=== PATIENT | male | born 1970 | race Caucasian/White ===

== ENCOUNTER → 2018-08-28 07:53 | Outpatient (CLI) | payer OTHER, SELFPAY ==
[2018-08-26 16:26] VITALS: BMI 28.3
[2018-08-28 09:31] LABS: ALB/GLOB Ratio 1.2 RATIO (0.9-2.4); AST(SGOT) 28 U/L (15-37); Alanine Aminotransfer ALT/SGPT 25 U/L (16-61); Albumin, Serum 4.1 g/dL (3.2-5.0); Alkaline Phosphatase 64 U/L (45-117); Anion Gap 7 (5-15); BUN 17 mg/dL (7-18); BUN/Creat Ratio 14.7 RATIO (10-20); Calcium,Total 8.5 mg/dL (8.5-10.1); Chloride 108 mmol/L (98-107); Cholesterol 168 mg/dL (200); Creatinine, Serum 1.16 mg/dL (0.70-1.30); EST Glomerular Filtration Rate 71 mL/min (>60); Est Glom Filt Rate - Afr Amer 86 mL/min (>60); Globulin 3.5 g/dL (2.2-4.2); Glucose 89 mg/dL (74-106); High Density Lipoprotein 53 mg/dL; Potassium 4.2 mmol/L (3.5-5.1); Protein, Total 7.6 g/dL (6.4-8.2); Sodium Level 140 mmol/L (136-145); Triglycerides 55 mg/dL; Very Low Density Lipoprotein 11 mg/dL (5-40)
== END ==
PROVIDERS: Family Provider Family Medicine; PCP Family Medicine; Referring Provider Family Medicine; Visit Provider Family Medicine
DX: N52.9 Male erectile dysfunction, unspecified (principal)
CPT/HCPCS: 36415; 80053; 80061; 84403

== ENCOUNTER 2019-05-27 07:55 | Day surgery (SDC) | payer OTHER, SELFPAY ==
[2018-08-26 16:26] VITALS: BMI 28.3
[2019-05-27] MEDS: Lactated Ringers 1,000 ML 100 ML IV (08:36)
[2019-05-27 08:38] VITALS: BP 111/71; PULSE 57; RESP 16; TEMP 36.9; O2SAT 97; BMI 26.8
--- NOTE | 2019-05-27 08:48 | H&P.OPEN ---
History of Present Illness Date of Admission: 05/27/19 The patient is a 48 year old M presents for screening colonoscopy. He reports his last colonoscopy was 10 years ago for bleeding. He is having no abdominal pain or bleeding at this time. He has no family history of colon cancer. Past Medical/Surgical History - Planned Operation Planned Operative Procedure/s: colonoscopy Date of Operative Procedure: 05/27/19 Permit Signed: No S.O.S: No Is This Patient Having a Total Joint: No - Previous Hospitalizations/Surgeries HX Hospitalizations: No HX of Surgeries: 2013 right shoulder arthroscopy. 2018 left hand surgery x2, trigger finger Any Problems With Anesthesia: No You/Your Family Experience Fever (Hyperthermia) With Anes: No Cholinesterase deficiency: No - Cardiovascular Hx Chest Pain within Last 2 months: No Hx of Irregular Heartbeat and/or Afib: No Hx Heart Attack: No Hx Congestive Heart Failure: No Hx Rheumatic Fever: No Hx Hypertension: No Hx Internal Defibrillator: No Hx Pacemaker: No Hx Cardiac Catheterization: No Hx Cardiac Surgery/Stents/Etc.: No Hx Stress Test: No HX Edema: No Hx Pain in Legs when Walking/Leg Cramps: No - Respiratory Chronic Cough: No HX of Shortness of Breath: No - denies Hoarseness: No Hx Chronic Obstructive Pulmonary Disease (COPD): No Hx Asthma: No Hx Emphysema: No Hx Sleep Apnea: No Hx Oxygen Use at Home: No Hx Respiratory Tract Infection/Cold (presently): No Do You Snore Loudly (louder than talking or can be heard): Yes Do You Often Feel Tired/ Fatigued/ Sleepy Dring Daytime?: Yes Has Anyone Observed You Stop Breathing During Sleep?: No Result (for STOP score): Positive Hx Smoking: No Smoking Status: Never smoker - Gastrointestinal Hx Gastroesophageal Reflux: Yes - per hx, not recent Controlled With Meds: No Hx Gastrointestinal Disorders: No Hx Gastrointestinal Bleed: No Hx Ulcer: No Hx Hiatal Hernia: No Difficulty Chewing/Swallowing: No Recent Onset of Swallowing Problems: No Special diet followed at home: No Hx Unplanned Weight Loss of 20#: No HX Unplanned Weight Gain of 20#: No - Neurological Hx Seizures: No HX Syncope/Blackout Spells/Unconsciousness: No Hx CVA/Stroke: No Hx Transient Ischemic Attacks (TIA): No Hx Multiple Sclerosis: No Hx Parkinson's Disease: No Hx Head/Neck Injury: No Hx Headaches: Yes - occas Hx Back Injury/Pain: No Recent Onset of Speech Difficulty: No Restless Legs: No Does patient have nerve stimulator: No Patient instructed to have device shut off: No Rep notified?: No - Blood Disorder Hx Leukemia: No Bleeding Tendencies: No Hx Deep Vein Thrombosis: No Hx High Cholesterol: No Blood Transmitted Disease: No Hx Hepatitis: No Hx Cirrhosis: No Hx Anemia: No Hx Blood Disorders: No - Genitourinary Hx Renal Disease: No - Musculoskeletal Hx Arthritis: No Hx Rheumatoid Arthritis: No Hx Gout: No Recent Onset of an Orthopedic Problem: No - Endocrine Hx Diabetes: No Thyroid Disease: No Hx Steroid Therapy: Yes - oral 02/2019 - Psycho/Social Hx Substance Use: No Hx Alcohol Use: No Hx Anxiety: No Hx Depression: No Mental Illness: No Hx Dementia: No - Miscellaneous Hx Cancer: No Recent Exposure to Contagious Disease: No Active MRSA: No Hx of C-Diff: No Any Loose Teeth: No Allergies No Known Allergies Allergy (Unverified 05/25/19 15:15) - Discharge Is Pt Admitted From a [facility], or a Senior Care: No Who Could Help: After D/C, Where Do you Plan to Go: Return Home - Physical Exam Vitals/I&O's: Vital Signs Temp Pulse Resp BP Pulse Ox 98.4 F 57 L 16 111/71 97 05/27/19 08:38 05/27/19 08:38 05/27/19 08:38 05/27/19 08:38 05/27/19 08:38 Oxygen Delivery Method Room Air Weight: 171 lb 1.259 oz Body Mass Index (BMI) 26.8 General: Alert, Oriented x3 Lungs: Normal air movement Cardiovascular: Regular rate, Regular Rhythm Abdomen: Soft, Non Tender, Non-Distended Current Medications Lactated Ringer's () 1,000 mls @ 100 mls/hr IV .Q10H GREGG Last Admin: 05/27/19 08:36 Dose: 100 mls/hr Documented by: Assessment/Plan 48-year-old male screening colon cancer I explained endoscopy in detail to the patient. I explained the risks including but not limited to stroke or heart attack with anesthesia, perforation of the GI tract, bleeding, infection. I explained that any of these could necessitate further emergency surgery. The patient understands and all questions were answered sufficiently. The patient wishes to proceed with procedure. Arnoldo Mark MD Pager: [facility] [address] [place] [address] [address] [place] [address] Office: Surgery Risks - Colonoscopy Risks Include but are not Limited To: Risks include but are not limited to: Bleeding, perforation requiring further surgery, inability to complete colonoscopy requiring barium enema.
--- NOTE | 2019-05-27 09:18 | OP.COLON_ITS ---
Patient Name: Manpreet Meier Procedure Date: 05/27/2019 8:54 AM Date of : 1970 Age: 48 Procedure: Colonoscopy Indications: Screening for colorectal malignant neoplasm Providers: Arnoldo Mark MD Referring MD: Woody Glaser Medicines: Monitored Anesthesia Care Patient Profile: This is a 48 year old male. Refer to note in patient chart for documentation of history and physical. Last Colonoscopy: 10 years ago. Complications: No immediate complications. Procedure: Pre-Anesthesia Assessment: - Prior to the procedure, a History and Physical was performed, and patient medications and allergies were reviewed. The patient's tolerance of previous anesthesia was also reviewed. The risks and benefits of the procedure and the sedation options and risks were discussed with the patient. All questions were answered, and informed consent was obtained. Prior Anticoagulants: The patient has taken no previous anticoagulant or antiplatelet agents. After reviewing the risks and benefits, the patient was deemed in satisfactory condition to undergo the procedure. After I obtained informed consent, the scope was passed under direct vision. Throughout the procedure, the patient's blood pressure, pulse, and oxygen saturations were monitored continuously. The pediatric colonoscope was introduced through the anus and advanced to the cecum, identified by appendiceal orifice and ileocecal valve. The colonoscopy was performed without difficulty. The patient tolerated the procedure well. The quality of the bowel preparation was good. Scope In: 9:00:54 AM Scope Withdrawal Time 0 hours 6 minutes 13 seconds Scope Out: 9:14:00 AM Total Procedure Duration Time 0 hours 13 minutes 6 seconds Findings: The entire examined colon appeared normal on direct and retroflexion views. Impression: - The entire examined colon is normal on direct and retroflexion views. - No specimens collected. Recommendation: - Resume previous diet. - Continue present medications. - Repeat colonoscopy in 10 years for screening purposes. Procedure Code(s): --- Professional --- 75305, Colonoscopy, flexible; diagnostic, including collection of specimen(s) by brushing or washing, when performed (separate procedure) Diagnosis Code(s): --- Professional --- Z12.11, Encounter for screening for malignant neoplasm of colon CPT copyright 2017 [employer]. All rights reserved. The codes documented in this report are preliminary and upon internet marketing analyst review may be revised to meet current compliance requirements. Arnoldo Mark MD 05/27/2019 9:17:51 AM This report has been signed electronically. Number of Addenda: 0 Note Initiated On: 05/27/2019 8:54 AM
[2019-05-27 09:20] VITALS: BP 100/55; BP 111/55; PULSE 88; RESP 16; TEMP 36.2; O2SAT 99
[2019-05-27 09:25] VITALS: BP 108/74; BP 111/55; PULSE 52; RESP 16; O2SAT 100
[2019-05-27 09:30] VITALS: BP 109/75; BP 111/55; PULSE 50; RESP 16; O2SAT 100
[2019-05-27 09:32] VITALS: BP 107/74; BP 111/55; PULSE 16; RESP 16; TEMP 36.3; O2SAT 100
[2019-05-27 10:03] VITALS: BP 111/55
== END 2019-05-27 10:03 | disposition home or self-care (01) ==
LOC: EN 07:56 → AC 07:57
PROVIDERS: Family Provider Family Medicine; PCP Family Medicine; Referring Provider Family Medicine; Visit Provider Surgery
PROC: 0DJD8ZZ Inspection of Lower Intestinal Tract, Via Natural or Artificial Opening Endoscopic (ICD-10-PCS; CPT 45378; principal; 2019-05-27 08:55)
DX: Z12.11 Encounter for screening for malignant neoplasm of colon (principal)
CPT/HCPCS: 45378; J7120

== ENCOUNTER → 2020-05-19 07:39 | Outpatient (CLI) | payer OTHER, SELFPAY ==
[2019-12-21 13:06] VITALS: BMI 26.8
--- NOTE | 2020-05-19 07:41 | RAD_ITS ---
STUDY: X-RAY - LUMBAR SPINE REASON FOR EXAM: Male, 49 years old. chronic back pain, no injury TECHNIQUE: 3 view(s) of the lumbar spine were obtained. COMPARISON: None FINDINGS: Normal lumbar lordosis. There is a dextroscoliosis of the lumbar spine. There is a normal alignment of the vertebrae. There is multilevel endplate spondylosis of the lumbar vertebrae. There is multi-level degenerative disc disease with multi-level disc space narrowing. There is no demonstrated fracture. Moderate facet arthropathy in the lower lumbar levels. The soft tissue structures are unremarkable. RAD/Lumbar Spine 2 or 3 Views IMPRESSION: Degenerative disc disease and facet arthropathy. Electronically Signed: Alejandro Costa MD (Brooks) at 17:02 EDT , Service support ,
--- NOTE | 2020-05-19 07:41 | RAD_ITS ---
STUDY: X-RAY - THORACIC SPINE REASON FOR EXAM: Male, 49 years old. chronic back pain, no injury TECHNIQUE: 3 view(s) of the thoracic spine were obtained. COMPARISON: None. FINDINGS: Normal kyphosis of the thoracic spine. There is no substantial scoliosis. There is demineralization of the thoracic spine with endplate spondylosis. There is multilevel disc space narrowing of the thoracic spine. No compression fracture. The soft tissue structures are unremarkable. RAD/Thoracic Spine 3 Views IMPRESSION: Multilevel degenerative changes without compression fracture demonstrated. Electronically Signed: Alejandro Costa MD ([place]) at 17:36 EDT , Service support ,
[2020-05-19 09:15] LABS: PSA,Total- Diagnostic 1.73 ng/mL (0.0-4.0)
== END ==
PROVIDERS: PCP Family Medicine; Referring Provider Family Medicine; Visit Provider Family Medicine
DX: M54.9 Dorsalgia, unspecified (principal)
CPT/HCPCS: 36415; 72072; 72100; 84153

== ENCOUNTER → 2020-06-21 16:53 | Outpatient (CLI) | payer OTHER, SELFPAY ==
[2019-12-21 13:06] VITALS: BMI 26.8
--- NOTE | 2020-06-21 16:54 | MRI_ITS ---
STUDY: MRI THORACIC SPINE WITHOUT CONTRAST REASON FOR EXAM: Male, 49 years old. Back pain, worse x 6-8 mos TECHNIQUE: Standardized fat and water weighted pulse sequences were obtained in the sagittal and axial planes. COMPARISON: Thoracic spine radiographs 05/19/2020. FINDINGS: Normal kyphosis of the thoracic spine. There is no substantial scoliosis. T1-2, T2-3, T3-4, T4-5, T5-6, T6-7, T7-8, T8-9, T9-10, T10-11, T11-12: Minimal anterior wedging of T6, T7, T8, T10, T11, T12 and L1 vertebral bodies are presumably from remote injury. Moderate disc space height narrowing at T7-T8, T8-T9, T9-T10, T10-T11, T11-T12 and T12-L1 disc space levels. No extruded disc fragment. Normal central canal and intervertebral neural foramina. Small round benign vertebral body hemangiomas at T7, T8 and T10 vertebral bodies. Normal visualized thoracic cord. Normal conus medullaris that terminates at the T12-L1 disc level.. The soft tissue structures are unremarkable. MRI/Spine Thoracic (Routine) IMPRESSION: 1. No MRI evidence of thoracic extruded disc fragment or spinal stenosis. 2. Normal thoracic spinal cord. 3. Minimal anterior wedging of T6, T7, T8, T10, T11, T12 and L1 vertebral bodies are presumably from remote injury. 4. No MRI evidence of recent compression fractures of the thoracic spine. Electronically Signed: Jesus Lindsay MD at 16:20 EST , Service support ,
== END ==
PROVIDERS: PCP Family Medicine; Referring Provider Orthopaedic Surgery; Visit Provider Orthopaedic Surgery
DX: M54.6 Pain in thoracic spine (principal); M54.10 Radiculopathy, site unspecified
CPT/HCPCS: 72146

== ENCOUNTER → 2023-05-30 | Outpatient (CLI) | payer OTHER, SELFPAY ==
--- NOTE | 2023-05-30 08:07 | RAD_ITS ---
STUDY: X-RAY - PARANASAL SINUSES REASON FOR EXAM: Male, 52 years old. nasal congestion TECHNIQUE: 3 view(s) of the paranasal sinuses were obtained. COMPARISON: None. FINDINGS: Normal visualized frontal, maxillary, ethmoidal and sphenoid sinuses. Normal visualized facial bones. The soft tissue structures are unremarkable. RAD/Sinuses min 3 Views IMPRESSION: Normal x-rays of the paranasal sinuses. Electronically Signed: Sotero Arnold MD at 9:13 EST ,
== END | disposition home or self-care (01) ==
LOC: RAD 08:04
PROVIDERS: PCP Family Medicine; Visit Provider Family Medicine
DX: R09.81 Nasal congestion (principal)
CPT/HCPCS: 70220

== ENCOUNTER → 2025-01-21 | Outpatient (CLI) | payer OTHER, SELFPAY ==
[2025-01-21 09:42] LABS: Hematocrit 40.7 % (40-54); Hemoglobin 14.1 g/dL (13.0-16.5); Immature Granulocytes Count 0.010 X10^3/uL (0.0-0.0); Mean Corp Hgb Conc 34.6 g/dL (32-36); Mean Corpuscular Volume 86.6 fL (80-94); Mean Platelet Vol. 9.4 fl (6.2-12.0); NRBC Flagged by Analyzer 0 % (0-5); Platelet Count 251 K/mm3 (150-450); RBC Distribution Width CV 13.0 % (11.6-14.6); RBC Distribution Width SD 40.9 fl (35.1-43.9); Red Blood Count 4.70 M/mm3 (4.6-6.2); White Blood Count 4.5 K/mm3 (4.4-11.0)
[2025-01-21 10:54] LABS: AST(SGOT) 36 U/L (<=37); Alanine Aminotransfer ALT/SGPT 23 U/L (<=46); Albumin, Serum 4.4 g/dL (3.5-5.0); Alkaline Phosphatase 64 U/L (40-129); Anion Gap 12 (5-15); BUN 21 mg/dL (4-19); BUN/Creat Ratio 19.6 RATIO (10-20); Calcium,Total 9.4 mg/dL (7.6-11.0); Carbon Dioxide 24.2 mmol/L (21.0-32.0); Chloride 104 mmol/L (98-108); Globulin 2.7 g/dL (2.2-4.2); Glucose 89 mg/dL (70-99); Potassium 4.2 mmol/L (3.3-5.1)
== END | disposition home or self-care (01) ==
LOC: LAB 08:34
PROVIDERS: PCP Family Medicine; Referring Provider Family Medicine; Visit Provider Family Medicine
DX: R53.83 Other fatigue (principal)
CPT/HCPCS: 36415; 80053; 85025

== ENCOUNTER → 2025-02-04 | Outpatient (CLI) | payer OTHER, SELFPAY ==
--- OUTSIDE RECORDS SUMMARY | 2025-02-04 08:09 | XMS RPT_ITS | CCD ---
Author Organization [facility] Care Team Providers Care Service Advisor Name Role Phone ISIAH GLASER Primary Care Unavailable DONITA POTTER Attending Unavailable ISIAH GLASER Primary Care Unavailable ABIEL DOWNEY Attending Unavailable Dr. Isiah Glaser DO Primary Care Provider Dr. Isiah Glaser DO Attending Provider Dr. Isiah Glaser DO Referring Provider [phone] Isiah Glaser Attending Unavailable Isiah Glaser Referring Unavailable Isiah Glaser Primary Care Unavailable Isiah Glaser Referring Unavailable Isiah Glaser Primary Care Unavailable Isiah Glaser Attending Unavailable Medications Current Medications Medication Drug Class(es) Dates Sig (Normalized) Sig (Original) cholecalciferol 0.025 mg oral tablet (3 sources) Vitamin D Start: 05-25-2019 take 1 tablet by mouth once daily Cholecalciferol (Vitamin D3) 1,000 UNIT tablet Active 1000 U PO DAILY May 25, 2019 1:00am supplement Magnesium (2 sources) Start: 01-18-2025 take 1 tablet by mouth once daily Magnesium 200 mg tablet Active 200 mg PO daily January 18, 2025 12:00am Completed/Discontinued Medications Medication Drug Class(es) Dates Sig (Normalized) Sig (Original) amoxicillin 875 mg / clavulanate 125 mg oral tablet (3 sources) Penicillin-class Antibacterial Start: 11-22-2019 End: 12-06-2019 Amoxicillin-Pot Clavulanate (Augmentin) 875-125 mg tablet Discontinued 1 {tbl} PO TWICE A DAY November 22, 2019 12:00am December 06, 2019 8:33am carbamide peroxide 65 mg/ml otic solution (6 sources) Start: 11-22-2019 End: 05-17-2020 Carbamide Peroxide (Debrox) 6.5 % drops Discontinued 5 NMA OTIC DAILY 15 4 1 December 19, 2019 1:11pm May 17, 2020 4:37pm Start: 11-22-2019 End: 05-17-2020 Carbamide Peroxide (Debrox) 6.5 % drops Discontinued 5 DRP OTIC DAILY 15 4 December 19, 2019 12:11pm May 17, 2020 3:37pm dicyclomine hydrochloride 20 mg oral tablet (2 sources) Anticholinergic Start: 01-05-2024 End: 01-18-2025 take 1 tablet by mouth twice daily as needed Dicyclomine 20 mg tablet Discontinued 20 mg PO TWICE A DAY 60 1 January 05, 2024 12:00am January 18, 2025 4:35pm take prn for loose stools. escitalopram 10 mg oral tablet (4 sources) Serotonin Reuptake Inhibitor Start: 01-05-2024 End: 01-18-2025 take 1 tablet by mouth once daily Escitalopram Oxalate (Lexapro) 10 mg tablet Discontinued 10 mg PO DAILY 30 3 April 21, 2024 3:26pm January 18, 2025 4:36pm famotidine 40 mg oral tablet (3 sources) Histamine-2 Receptor Antagonist Start: 11-22-2019 End: 08-14-2021 take 1 tablet by mouth once daily Famotidine (Pepcid) 40 mg tablet Discontinued 40 mg PO DAILY 30 November 22, 2019 12:00am August 14, 2021 5:10pm fluticasone propionate 0.05 mg/actuat metered dose nasal spray (3 sources) Corticosteroid Start: 08-26-2018 End: 11-22-2019 take 50 ug nasal route once daily Fluticasone Propionate (Allergy Relief (Fluticasone)) 50 mcg/actuation spray,suspension Discontinued 1 NMA INTRANASAL DAILY 9.9 August 26, 2018 1:00am November 22, 2019 8:40am administer into each nostril Start: 08-26-2018 End: 11-22-2019 take 1 spray(s) nasal route once daily Fluticasone Propionate (Allergy Relief (Fluticasone)) 50 mcg/actuation spray,suspension Discontinued 1 SPRAY INTRANASAL DAILY 9.August 26, 2018 12:00am November 22, 2019 7:40am administer into each nostril Multivitamin 1 EACH tablet (2 sources) Start: 05-25-2019 End: 08-14-2021 Multivitamin 1 EACH tablet Discontinued 1 NMA PO DAILY May 25, 2019 1:00am August 14, 2021 5:10pm supplement Multivitamin preparation (1 source) Start: 05-25-2019 End: 08-14-2021 Multivitamin Discontinued 1 EACH PO DAILY May 25, 2019 12:00am August 14, 2021 4:10pm tadalafil 5 mg oral tablet (20 sources) Phosphodiesterase 5 Inhibitor Start: 08-27-2018 End: 01-18-2025 take 1 tablet by mouth every twenty-four hours Tadalafil 5 mg tablet Discontinued 5 mg PO DAILY as needed for sexual activity 30 3 January 11, 2025 4:03pm January 18, 2025 4:59pm administer approximately 30min before sexual activity; do not use more than 1 dose per 24hrs Start: 08-26-2018 End: 08-27-2018 take 1 tablet by mouth every twenty-four hours Tadalafil (Cialis) 10 mg tablet Discontinued 10 mg PO DAILY as needed for sexual activity 7 August 26, 2018 1:00am August 27, 2018 11:45am administer approximately 30min before sexual activity; do not use more than 1 dose per 24hrs Problems Problem Classification Problem Date Documented Da te Episodic/Chronic Immunizations and screening for infectious disease (3 sources) Contact with and (suspected) exposure to other viral communicable diseases; Translations: [Contact with or suspected exposure to other viral communicable disease] 08-14-2020 Episodic Malaise and fatigue (5 sources) Fatigue; Translations: [Other fatigue] Onset: 01-26-2025 01-18-2025 Episodic Mood disorders (2 sources) Depressive disorder; Translations: [Depression] 01-05-2024 Chronic Other disorders of stomach and duodenum (3 sources) Disorder of function of stomach; Translations: [Other diseases of stomach and duodenum] 12-06-2019 Episodic Comment on above: Resolved with the Pe pcid. Other ear and sense organ disorders (3 sources) Impacted cerumen; Translations: [Impacted cerumen, right ear] 11-22-2019 Episodic Other gastrointestinal disorders (2 sources) Irritable bowel syndrome with diarrhea; Translations: [Irritable bowel syndrome with diarrhea] 01-05-2024 Chronic Other male genital disorders (3 sources) Male erectile dysfunction, unspecified; Translations: [Erectile dysfunction] 08-26-2018 Chronic Other upper respiratory disease (3 sources) Polyp of nasal cavity and/or nasal sinus; Translations: [Nasal polyp, unspecified] 08-26-2018 Episodic Spondylosis; intervertebral disc disorders; other back problems (3 sources) Backache; Translations: [Dorsalgia, unspecified] 05-17-2020 Episodic Viral infection (3 sources) Disease caused by 2019-nCoV; Translations: [COVID-19] 08-14-2020 Episodic Results Test Name Value Interpretation Reference Range Facility Absolute lymphocyte countOrd ered By: Isiah Glaser on 01-21-2025 Lymphocytes Auto (Unsp spec) [#/Vol] 1.64 10*3/uL 0.83-4.51 [facility] Absolute neutrophil countOrd ered By: Isiah Glaser on 01-21-2025 Neutrophils (Bld) [#/Vol] 2.0 10*3/uL 2.0-7.7 [facility] Anion gap in Serum or Plasma Ordered By: Isiah Glaser on 01-21-2025 Anion gap [Moles/Vol] 12 mmol/L 5-15 [facility] Automated lymphocyte count a s percentage of total leukocytesOrdered By: Isiah Glaser on 01-21-2025 Lymphocytes/100 WBC Auto (Unsp spec) 36.4 % 19-41 [facility] BUN/creatinine ratioOrdered By: Isiahseng Glaser on 01-21-2025 Urea nitrogen/Creatinine [Mass ratio] 19.6 mg/mg 10-20 [facility] Basophil percentageOrdered B y: Isiah Glaser on 01-21-2025 Basophils/100 WBC (Bld) 0.7 % 0-1 [facility] Bilirubin, totalOrdered By: Isiah Glaser on 01-21-2025 Bilirubin [Mass/Vol] 0.36 mg/dL 0.00-1.30 [facility] CBC W/Diff, Automatedon Absolute Lymph 1.64 X10 3/uL Normal 0.83-4.51 [facility] Comment on above: Performed By: #### L 500.4050, L100.0100 #### [facility] [address] [place], [place], [id number] Absolute Neut 2.0 X10 3/uL Normal 2.0-7.7 [facility] Comment on above: Performed By: #### L 500.4050, L100.0100 #### [facility] [address] [place], [address] Basophils/100 WBC (Bld) 0.7 % Normal 0-1 [facility] Comment on above: Performed By: #### L 500.4050, L100.0100 #### [facility] [address] [place], [address] Eosinophils/100 WBC (Bld) 12.0 % High 0-5 [facility] Comment on above: Performed By: #### L 500.4050, L100.0100 #### [facility] [address] [place], [address] Erythrocyte distribution width (RBC) [Ratio] 13.0 % Normal 11.6-14.6 [facility] Comment on above: Performed By: #### L 500.4050, L100.0100 #### [facility] [address] [place], [address] Hematocrit (Bld) [Volume fraction] 40.7 % Normal 40-54 [facility] Comment on above: Performed By: #### L 500.4050, L100.0100 #### [facility] [address] [place], [address] Hemoglobin (Bld) [Mass/Vol] 14.1 g/dL Normal 13.0-16.5 [facility] Comment on above: Performed By: #### L 500.4050, L100.0100 #### [facility] [address] [place], [address] IG% 0.200 Normal 0.0-0.9 [facility] Comment on above: Result Comment: IG% - Immature Granulocytes (promyelocytes, myelocytes and metamyelocytes) > 1% indicates that a LEFT SHIFT is Present. Performed By: #### L 500.4050, L100.0100 #### [facility] [address] [place], [address] Lymphocytes/100 WBC (Bld) 36.4 % Normal 19-41 [facility] Comment on above: Performed By: #### L 500.4050, L100.0100 #### [facility] [address] [place], [address] MCH (RBC) [Entitic mass] 30.0 pg Normal 27.0-32.0 [facility] Comment on above: Performed By: #### L 500.4050, L100.0100 #### [facility] [address] [place], [address] MCHC (RBC) [Mass/Vol] 34.6 g/dL Normal 32-36 [facility] Comment on above: Performed By: #### L 500.4050, L100.0100 #### [facility] [address] [place], [address] MCV (RBC) [Entitic vol] 86.6 fL Normal 80-94 [facility] Comment on above: Performed By: #### L 500.4050, L100.0100 #### [facility] [address] [place], [address] Monocytes/100 WBC (Bld) 7.1 % Normal 0-10 [facility] Comment on above: Performed By: #### L 500.4050, L100.0100 #### [facility] [address] [place], [address] Neutrophils/100 WBC (Bld) 43.6 % Low 47-70 [facility] Comment on above: Performed By: #### L 500.4050, L100.0100 #### [facility] [address] [place], [address] Nucleated RBC (Bld) [#/Vol] 0 10*3/uL Normal 0-5 [facility] Comment on above: Performed By: #### L 500.4050, L100.0100 #### [facility] [address] [place], [address] Platelet mean volume (Bld) [Entitic vol] 9.4 fL Normal 6.2-12.0 [facility] Comment on above: Performed By: #### L 500.4050, L100.0100 #### [facility] [address] [place], [address] Platelets (Bld) [#/Vol] 251 10*3/uL Normal 150-450 [facility] Comment on above: Performed By: #### L 500.4050, L100.0100 #### [facility] [address] [place], [address] RBC (Bld) [#/Vol] 4.70 10*6/uL Normal 4.6-6.2 [facility] Comment on above: Performed By: #### L 500.4050, L100.0100 #### [facility] [address] [place], [address] RDW SD 40.9 fl Normal 35.1-43.9 [facility] Comment on above: Performed By: #### L 500.4050, L100.0100 #### [facility] [address] [place], [address] WBC (Bld) [#/Vol] 4.5 10*3/uL Normal 4.4-11.0 [facility] Comment on above: Performed By: #### L 500.4050, L100.0100 #### [facility] [address] [place], [address] Carbon dioxide, total [Moles /volume] in Central venous bloodOrdered By: Isiah Glaser on 01-21-2025 CO2 [Moles/Vol] 24.2 mmol/L 21.0-32.0 [facility] Chloride assayOrdered By: Do kong Glaser on 01-21-2025 Chloride [Moles/Vol] 104 mmol/L 98-108 [facility] Comprehensive Metabolic Prof ilon 01-21-2025 Albumin [Mass/Vol] 4.4 g/dL Normal 3.5-5.0 [facility] Comment on above: Performed By: #### L 500.4050, L100.0100 #### [facility] [address] [place], [address] Albumin/Globulin [Mass ratio] 1.7 {ratio} Normal 0.9-2.4 [facility] Comment on above: Performed By: #### L 500.4050, L100.0100 #### [facility] [address] [place], [address] ALK PHOS 64 U/L Normal 40-129 [facility] Comment on above: Performed By: #### L 500.4050, L100.0100 #### [facility] [address] [place], [address] ALT [Catalytic activity/Vol] 23 U/L Normal <=46 [facility] Comment on above: Performed By: #### L 500.4050, L100.0100 #### [facility] [address] [place], [address] AST [Catalytic activity/Vol] 36 U/L Normal <=37 [facility] Comment on above: Performed By: #### L 500.4050, L100.0100 #### [facility] [address] [place], [address] Bilirubin [Mass/Vol] 0.36 mg/dL Normal 0.00-1.30 [facility] Comment on above: Performed By: #### L 500.4050, L100.0100 #### [facility] [address] [place], [address] BUN/CRE 19.6 RATIO Normal 10-20 [facility] Comment on above: Performed By: #### L 500.4050, L100.0100 #### [facility] [address] [place], [address] Calcium [Mass/Vol] 9.4 mg/dL Normal 7.6-11.0 [facility] Comment on above: Performed By: #### L 500.4050, L100.0100 #### [facility] [address] [place], [address] Chloride [Moles/Vol] 104 mmol/L Normal 98-108 [facility] Comment on above: Performed By: #### L 500.4050, L100.0100 #### [facility] [address] [place], [address] CO2 [Moles/Vol] 24.2 mmol/L Normal 21.0-32.0 [facility] Comment on above: Performed By: #### L 500.4050, L100.0100 #### [facility] [address] [place], [address] Creatinine [Mass/Vol] 1.07 mg/dL Normal 0.70-1.20 [facility] Comment on above: Performed By: #### L 500.4050, L100.0100 #### [facility] [address] [place], [address] GAP 12 Normal 5-15 [facility] Comment on above: Performed By: #### L 500.4050, L100.0100 #### [facility] [address] [place], [address] GFR/1.73 sq M.predicted among non-blacks MDRD (S/P/Bld) [Vol rate/Area] 81 mL/min/{1.73_m2} Normal >60 [facility] Comment on above: Result Comment: mL/m in/1.73m2 CKD-EPI Creatinine Equation (2020) Performed By: #### L 500.4050, L100.0100 #### [facility] [address] [place], [address] Globulin (S) [Mass/Vol] 2.7 g/dL Normal 2.2-4.2 [facility] Comment on above: Performed By: #### L 500.4050, L100.0100 #### [facility] [address] [place], [address] Glucose [Mass/Vol] 89 mg/dL Normal 70-99 [facility] Comment on above: Performed By: #### L 500.4050, L100.0100 #### [facility] [address] [place], [address] Potassium [Moles/Vol] 4.2 mmol/L Normal 3.3-5.1 [facility] Comment on above: Performed By: #### L 500.4050, L100.0100 #### [facility] [address] [place], [address] Sodium [Moles/Vol] 140 mmol/L Normal 133-145 [facility] Comment on above: Performed By: #### L 500.4050, L100.0100 #### [facility] [address] [place], [address] T PROT 7.1 g/dL Normal 5.9-8.4 [facility] Comment on above: Performed By: #### L 500.4050, L100.0100 #### [facility] [address] [place], [address] Urea nitrogen [Mass/Vol] 21 mg/dL High 4-19 [facility] Comment on above: Performed By: #### L 500.4050, L100.0100 #### [facility] [place], [address] Eosinophil percentageOrdered By: Isiah Glaser on 01-21-2025 Eosinophils/100 WBC (Bld) 12.0 % High 0-5 [facility] Erythrocyte distribution wid th ratioOrdered By: Isiahseng Glaser on 01-21-2025 Erythrocyte distribution width (RBC) [Ratio] 13.0 % 11.6-14.6 [facility] Erythrocyte distribution wid th standard deviationOrdered By: Isiah Glaser on 01-21-2025 Erythrocyte distribution width (RBC) [Ratio] 40.9 fl 35.1-43.9 [facility] Glomerular filtration rate ( GFR) estimation/1.73 sq m using serum, plasma, or whole bOrdered By: Isiah Glaser on 01-21-2025 GFR/1.73 sq M.predicted among non-blacks MDRD (S/P/Bld) [Vol rate/Area] 81 mL/min/{1.73_m2} >60 [facility] Comment on above: mL/min/1.73m2 CKD-EP I Creatinine Equation (2020) Hematocrit Auto (Bld) [Volum e fraction]Ordered By: Isiah Glaser 01-21-2025 Hematocrit (Bld) [Volume fraction] 40.7 % 40-54 [facility] Hemoglobin measurementOrdere d By: Isiah Glaser on 01-21-2025 Hemoglobin (Bld) [Mass/Vol] 14.1 g/dL 13.0-16.5 [facility] Immature granulocytes/100 WB C Auto (Bld)Ordered By: Isiah Glaser 01-21-2025 Immature granulocytes/100 WBC (Bld) 0.200 % 0.0-0.9 [facility] Comment on above: IG% - Immature Granu locytes (promyelocytes, myelocytes and metamyelocytes) > 1% indicates that a LEFT SHIFT is Present. Laboratory - Chemistry and C hemistry - challengeOrdered By: Isiah Glaser on 01-21-2025 AST [Catalytic activity/Vol] 36 U/L <38 [facility] MCV (mean corpuscular volume ) determinationOrdered By: Isiah Glaser 01-21-2025 MCV (RBC) [Entitic vol] 86.6 fL 80-94 [facility] Mean corpuscular hemoglobin (MCH) determinationOrdered By: Isiah Glaser on 01-21-2025 MCH (RBC) [Entitic mass] 30.0 pg 27.0-32.0 [facility] Mean corpuscular hemoglobin concentration (MCHC) determinationOrdered By: Isiah Glaser on 01-21-2025 MCHC (RBC) [Mass/Vol] 34.6 g/dL 32-36 [facility] Mean platelet volume determi nationOrdered By: Isiah Glaser on 01-21-2025 Platelet mean volume (Bld) [Entitic vol] 9.4 fL 6.2-12.0 [facility] Monocyte percentageOrdered B y: Isiah Glaser on 01-21-2025 Monocytes/100 WBC (Bld) 7.1 % 0-10 [facility] Neutrophil percentageOrdered By: Isiah Glaser on 01-21-2025 Neutrophils/100 WBC (Bld) 43.6 % Low 47-70 [facility] Nucleated red blood cell per centageOrdered By: Isiah Glaser on 01-21-2025 Nucleated RBC/100 WBC (Bld) [Ratio] 0 % 0-5 [facility] Platelet countOrdered By: Do kong Glaser on 01-21-2025 Platelets (Bld) [#/Vol] 251 10*3/uL 150-450 [facility] Potassium measurement (mass/ volume)Ordered By: Isiah Glaser on 01-21-2025 Potassium (Unsp spec) [Mass/Vol] 4.2 mmol/L 3.3-5.1 [facility] RBC Auto (Bld) [#/Vol]Ordere d By: Isiah Glaser on 01-21-2025 RBC (Bld) [#/Vol] 4.70 10*6/uL 4.6-6.2 [facility] Serum creatinine measurement (mass/volume)Ordered By: Isiah Glaser on 01-21-2025 Creatinine [Mass/Vol] 1.07 mg/dL 0.70-1.20 [facility] Serum globulin measurementOr dered By: Isiah Glaser on 01-21-2025 Globulin (S) [Mass/Vol] 2.7 g/dL 2.2-4.2 [facility] Serum glucose measurement (m ass/volume)Ordered By: Isiah Glaser on 01-21-2025 Glucose [Mass/Vol] 89 mg/dL 70-99 [facility] Serum or plasma alanine moreland otransferase (ALT) measurementOrdered By: Isiah Glaser on 01-21-2025 ALT [Catalytic activity/Vol] 23 U/L <47 [facility] Serum or plasma albumin milind urement (mass/volume)Ordered By: Isiah Glaser on 01-21-2025 Albumin [Mass/Vol] 4.4 g/dL 3.5-5.0 [facility] Serum or plasma albumin/glob ulin mass ratioOrdered By: Isiah Glaser on 01-21-2025 Albumin/Globulin [Mass ratio] 1.7 {ratio} 0.9-2.4 [facility] Serum or plasma alkaline benjamín sphatase measurementOrdered By: Isiah Glaser on 01-21-2025 ALP [Catalytic activity/Vol] 64 U/L 40-129 [facility] Serum or plasma calcium milind urement (mass/volume)Ordered By: Isiah Glaser on 01-21-2025 Calcium [Mass/Vol] 9.4 mg/dL 7.6-11.0 [facility] Serum or plasma urea nitroge n measurement (mass/volume)Ordered By: Isiah Glaser on 01-21-2025 Urea nitrogen [Mass/Vol] 21 mg/dL High 4-19 [facility] Sodium levelOrdered By: Jung Glaser on 01-21-2025 Sodium [Moles/Vol] 140 mmol/L 133-145 [facility] Total proteinOrdered By: Nelson Glaser on 01-21-2025 Protein [Mass/Vol] 7.1 g/dL 5.9-8.4 [facility] White blood cell (WBC) count Ordered By: Isiah Glaser on 01-21-2025 WBC (Bld) [#/Vol] 4.5 10*3/uL 4.4-11.0 [facility] Internal Medicine Office Vis jonathan 01-18-2025 Internal Medicine Office Visit [facility] [address] [place] [address] [address] [place], [place] [address] OFFICE VISIT Date of Service: 01/18/25 MR#: [id number] Acct: [id number] Name: VERN SIMMONS Rep #: [id number] : 1970 Provider: Dr. Isiah thomson DO Age/Sex: 54/M Location: [facility] Status: Signed Intake Vital Signs 01/05/24 16:26 01/18/25 16:40 Height 5 ft 7 in 5 ft 7 in Weight: 172 lb BMI 26.9 BP 110/70 Blood Pressure Location Lt brachial Position Sitting Respiration 18 Pulse 74 Pulse Source Monitor Temp 98.4 F Temp Source Temporal Pulse Oximetry (%) 99 Oxygen Delivery Method room air Intake Visit Reasons: DISCUSS TESTOSTERONE Chief Complaint: Fatigue. Bleach Chlorinator Required: No Is patient in pain?: No Allergies No Known Allergies Allergy (Unverified 01/18/25 16:30) Medications ???Medication ???Instructions ???Recorded ???Confirmed ???Type cholecalciferol (vitamin D3) 25 1,000 unit PO DAILY supplement 01/0501/18/25 History mcg (1,000 unit) tablet magnesium 200 mg tablet 200 mg PO QDAY 01/18/25 01/18/25 H istory tadalafil 5 mg tablet 5 mg PO DAILY PRN sexual activity 01/18/25 01/18/25 Rx #30 tabs Nurse's Note: Pt wants to discuss testosterone had it checked years ago in 2011 and level was 427. Has been experiencing a lot of fatigue which is interfering w/ hobbies such as working out and running, pt has been having ongoing Erectile dysfunction. Pt denies, thinning or hair loss, or gynecomastia. Pt dc'd lexapro due to not having any emotions or feelings. Pt states he has more good days than bad days and feels mood is pretty manageable. Pt needs cialis refilled to [facility] as he swapped pharmacies. [facility] Medical History (Updated 01/18/25 @ 16:[address] Isiah Glaser DO) Normal colonoscopy Surgical History (Updated 01/18/25 @ 16:39 by Marisela D eJesus MA) S/P colonoscopy History of shoulder surgery History of hand surgery Family History Father Heart disease Diabetes Mother Diabetes Social History Smoking Status: Never smoker alcohol intake: current alcohol intake frequency: holidays/special occasions only substance use type: does not use what type of physical activity do you participate in: none HPI HPI Chief Complaint: Fatigue. Details: VERN SIMMONS, is a 54 M who presents to the office today for discussion on testosterone replacement therapy. He was having some problems with depression and was on an SSRI but did not really feel much better on the SSRI. He cut out carbonated beverages and diet beverages and is tried to eat much healthier and also started working out and did feel some better but he still does not feel normal and feels quite fatigued. He is interested in investigating whether his testosterone is low and I explained that the only way to find that out is to do blood tests and since she has not had any blood test for some time I have set those tests up. He was told it is important that they be done in the morning and fasting and that if his testosterone was low we would repeat it to verify the result. ROS Const Constitutional: No body ache, chills, excessive sweating, fatigue, fever(s), frequent falls, headache(s), snoring, weakness, sleep problems or change in appetite Eyes Eyes: No blurry vision, change in vision, eye pain or Light sensitivity ENT ENT: No abnormal hearing, ear or mastoid pain, tinnitus, nasal congestion, headache(s), neck pain or sore throat Resp Respiratory: No cough, shortness of breath, snoring or wheezing Cardio Cardiology: No chest pain at rest, chest pain with exertion, excessive sweating, shortness of breath, dyspnea on exertion, lightheadedness, orthopnea or palpitations Gastro GI: No abdominal pain, change in bowel habits, constipation, cramping, diarrhea, nausea/dyspepsia or vomiting Genitourinary Male: No burning urination, painful urination, urinary incontinence or urinary frequency Musc Musculoskeletal: No abnormal gait, joint pain, back pain, limited range of motion, neck pain or numbness Skin Skin: No dry skin, redness, lesions, itchy eyes, rash or wounds Neuro Neurology: No abnormal gait, abnormal hearing, weakness, frequent falls, headache(s), memory loss or numbness Psych Psychiatric: No anxiety, No change in appetite, No depression, No memory loss and No Thoughts of harming yourself/Others Endo Endocrine: No cold intolerance, excessive sweating, fatigue, flushing, heat intolerance, increased thirst/drinking or increased hunger Aller/Imm Allergy/Immunologic: No itchy eyes, seasonal allergy symptoms, hives or wheezing Ryan/Lymp Hematologic/Lymphati c: No easy bleeding, easy bruising, enlarged (more content not included)... Normal [facility] CNOVon 07-23-2023 CNOV Office Visit (OTAUCR) JOE SIMMONS ([id number]) 1970 M Date Time Provider Department 07/23/23 2:30 PM DONITA POTTER During your visit today, we recorded the following information about you: Donita Potter AUD 07/23/2023 2:31 PM Signed TYMPANOMETRY Name: Joe Simmons CCF#: [id number] Date of Service: 07/23/2023 Date of : 1970 Age: [age] year old Patient was sent by Abiel Downey MD for tympanometry only. Right ear: Normal middle ear pressure and mobility. Left ear: Normal middle ear pressure and mobility. Patient returned to the physician for follow-up. Donita Potter MA CCC/A Mortgage Loan Officer Originator Allergies As of Date: 07/23/2023 (No Known Allergies) Date Reviewed: 07/23/2023 Reviewed by: Lizabeth Live Ma - Fully Assessed Primary Visit Diagnosis:Pressure sensation in ear, bilateral [H93.8X3] Order(s):TYMPANOMETR Y [[id number]] Order #: [id number]: 1 Prescriptions as of 07/23/2023 - ciprofloxacin-dexame thasone (CIPRODEX) otic suspension Use 4 Drops in the left ear twice daily. - CARAC 0.5 % TOPICAL CREAM daily 15 days nose Problem List As Of Date 07/23/2023 Noted Resolved Pressure sensation in ear, bilateral [H93.8X3] 07/23/2023 Encounter Status:Closed by DONITA POTTER on 07/23/23 Normal [facility] CNOV Office Visit (OTOLCR) JOE SIMMONS ([id number]) 1970 M Date Time Provider Department 07/23/23 2:15 PM ABIEL DOWNEY OTOLCR During your visit today, we recorded the following information about you: Abiel Downey MD, PhD 07/23/2023 2:41 PM Signed SUBJECTIVE: HISTORY OF PRESENT ILLNESS Patient presents with: Post-nasal Drip: New. Self referral. PND and throat clearing. Denies throat pain and dysphagia. He admits to acid indigestion. Ear Problem: RT ear blockage. Denies otalgia and otorrrhea. He has difficulty with aural blockage on airplanes. PAST MEDICAL HISTORY No past medical history on file. PAST SURGICAL HISTORY No past surgical history on file. SYMPTOM REVIEW: Symptom review is unremarkable except as indicated in the above history of present illness. OBJECTIVE: PHYSICAL EXAM: GENERAL: The patient is seated in the examination chair appearing well with normal skin turgor and color, and body habitus. There are no obvious deformities and grooming is adequate. Joe Simmons has an adequate ability to communicate. EARS: RIGHT: Canal clear, TM intact mobile free of infection or effusion. LEFT: Canal clear, TM intact , mobile free of infection or effusion. NOSE: Septum: Aligned Turbinates: Normal Mucosa: Normal MOUTH:Examination of the oral mucosa, hard and soft palates, and tongue demonstrates no mucosal abnormality, masses or other lesions. ORAL PHARYNX: Without mucosal abnormality, swelling, erythema or masses. Tonsils: WNL TEETH: open bite deformity. LIPS, GUMS: Without abnormality LARYNX: Normal crepitus,non-displac ed. VOCAL CORDS: Mirror exam could not be completed successfully due to prominent gag reflex. VOICE: Normal NECK: Overall appearance is symmetrical. Supple, without lymphadenopathy THYROID:Without enlargement, tenderness or masses. EYES: PERRLA, EOM, Without nystagmus FLEXIBLE LARYNGOSCOPY PRE-OPERATIVE DIAGNOSIS: Gastroesophageal reflux POST-OPERATIVE DIAGNOSIS: Gastroesophageal reflux INDICATIONS: Evaluation of the larynx and immediate subglottis - unable to be visualized by mirror examination ANESTHESIA: 4% Xylocaine PROCEDURE: With the patient sitting upright in the examining chair and the risks, benefits, personnel and alternatives were discussed and the patient agrees to proceed. After the topical application of anesthesia, and after waiting an appropriate period of time for anesthesia/vasoconst riction to become effective, the flexible laryngoscope was passed through the anterior nares. The nose, nasopharynx, oropharynx, hypopharynx and larynx were examined. FINDINGS: Findings is the nose, nasopharynx, oropharynx, hypopharynx, pyriform recesses, and endolarynx are normal with the exception of: There was erythema of the posterior glottis, with some mucosal changes, consistent with Acid Reflux. CONDITION: Stable; Well tolerated. COMPLICATIONS OR DIFFICULTIES: None Abiel Downey MD, PhD AUDIOMETRICS: NORMAL Tympanometry Encounter Diagnosis ICD-10-CM 1. Dysfunction of right eustachian tube H69.91 2. PND (post-nasal drip) R09.82 FLEX FIBEROP LARYNGOSCOPY,DIAG 3. Gastroesophageal reflux disease, unspecified whether esophagitis present K21.[address] (PROTONIX) 40 mg tablet Follow up: Abiel Downey MD, PhD Allergies As of Date: 07/23/2023 (No Known Allergies) Date Reviewed: 07/23/2023 Reviewed by: Lizabeth Live Ma - Fully Assessed Reason for Visit: Post-nasal Drip [1168] Cmt: New. Self referral. PND and throat clearing. Denies throat pain and dysphagia. Ear Problem [38] Cmt: RT ear blockage. Denies otalgia and otorrrhea. Primary Visit Diagnosis:Dysfunctio n of right eustachian tube [H69.91] Other Visit Diagnoses:PND (post-nasal drip) [R09.82] Gastroesophageal reflux disease, unspecified whether esophagitis present [K21.9] Order(s):FLEX FIBEROP LARYNGOSCOPY,DIAG [[id number]] Order #: [id number] pantoprazole DR (PROTONIX) 40 mg tabletTake 1 tablet by mouth once daily.Disp: 90 tabletRfl: 3 Prescriptions as of 07/23/2023 - pantoprazole DR (PROTONIX) 40 mg tablet Take 1 tablet by mouth once daily. - ciprofloxacin-dexame thasone (CIPRODEX) otic suspension Use 4 Drops in the left ear twice daily. - CARAC 0.5 % TOPICAL CREAM daily 15 days nose Problem List As Of Date 07/23/2023 Noted Resolved Pressure sensation in ear, bilateral [H93.8X3] 07/23/2023 Prescriptions ordered this encounter Disp Refills Start End PANTOPRAZOLE 40 MG TABLET,DELAYED RE* 90 t* 3 07/23/2023 Route: ORAL Sig: Take 1 tablet by mouth once daily. Encounter Status:Closed by ABIEL DOWNEY on 07/23/23 Normal [facility] Vital Signs Date Time Vital Sign Value Performing Clinician Kyle johnson 01-18-2025 16:40-0400 Body height 170.[address] Isiah Glaser DO Work Phone: [facility] 01-18-2025 16:40-0400 Body mass index (BMI) [Ratio] 26.9 kg/m2 Dr. Isiah Glaser DO Work Phone: [facility] 01-18-2025 16:40-0400 Body temperature 98.4 [degF] Dr. Isiah Glaser DO Work Phone: [facility] 01-18-2025 16:40-0400 Body weight 78.[address] Isiah Glaser DO Work Phone: [facility] 01-18-2025 16:40-0400 Diastolic blood pressure 70 mm[Hg] Dr. Isiah Glaser DO Work Phone: [facility] 01-18-2025 16:40-0400 Heart rate 74 /min Dr. Isiah Glaser DO Work Phone: [facility] 01-18-2025 16:40-0400 Respiratory rate 18 /min Dr. Isiah Glaser DO Work Phone: [facility] 01-18-2025 16:40-0400 SaO2% (BldA) [Mass fraction] 99 % Dr. Isiah Glaser DO Work Phone: [facility] 01-18-2025 16:40-0400 Systolic blood pressure 110 mm[Hg] Dr. Isiah Glaser DO Work Phone: [facility] Encounters Encounter Date Encounter Type Care Provider Facility Start: 01-21-2025 End: 01-21-[address] Isiah Glaser DO Work Phone: -Laboratory Start: 01-21-2025 End: 01-21-[address] Isiah Isaac DO -Laboratory Work Phone: Start: 01-21-2025 End: 01-21-2025 ambulatory Isiah Glaser Facility:[facility] Start: 01-18-2025 End: 01-18-[address] Isiah Isaac DO -[facility] Work Phone: Start: 01-18-2025 End: 01-18-[address] Isiah Glaser DO Work Phone: -[facility] Start: 07-23-2023 End: 07-23-2023 ambulatory ISIAH GLASER Facility:[facility] Start: 05-30-2023 End: 05-30-2023 ambulatory [facility] Work Phone: Start: 05-30-2023 End: 05-30-2023 Patient encounter procedure [facility]-Radiology, [facility] Work Phone: Procedures Date Procedure Procedure Detail Performing Clinician Start: 05-30-2023 Radiography of nasal sinuses Plan of Treatment Date Care Activity Detail Author CBC W Auto Differential panel - Blood [facility] Comprehensive metabo lic 2000 panel - Serum or Plasma [facility] Payers Date Payer Category Payer Self-pay [id number] 2019 Unknown [id number] 2015 Private Health Insurance [id number] Unknown [id number] Unknown [id number] Social History Date Type Detail Facility Start: 08-14-2021 Tobacco smoking stat [facility] Unknown if ever smoked [facility] Start: 05-25-2019 Non-smoker [facility] Start: 1970 Sex Assigned At Male [facility] Start: 08-14-2021 [facility] Evaluation note 01-18-2025 Note Date & Type Note Facility 01-18-2025 Evaluation note Diagnosis Onset Date Resolution Fatigue acute January 18, 2025 4:27pm [facility] Work Phone: Progress note 07-23-2023 Note Date & Type Note Facility 07-23-2023 Note HNO ID: [id number] Author: DONITA POTTER AUD Service: ? Author Type: Mortgage Loan Officer Originator Type: Progress Notes Filed: 07/23/2023 14:31 Note Text: TYMPANOMETRY Name: Joe Simmons CCF#: [id number] Date of Service: 07/23/2023 Date of : 1970 Age: [age] year old Patient was sent by Abiel Downey MD for tympanometry only. Right ear: Normal middle ear pressure and mobility. Left ear: Normal middle ear pressure and mobility. Patient returned to the physician for follow-up. Donita Potter MA CCC/A Mortgage Loan Officer Originator [facility] Progress note 07-23-2023 Note Date & Type Note Facility 07-23-2023 Note HNO ID: [id number] Author: ABIEL DOWNEY MD, PhD Service: ? Author Type: Physician Type: Progress Notes Filed: 07/23/2023 14:41 Note Text: SUBJECTIVE: HISTORY OF PRESENT ILLNESS Patient presents with: Post-nasal Drip: New. Self referral. PND and throat clearing. Denies throat pain and dysphagia. He admits to acid indigestion. Ear Problem: RT ear blockage. Denies otalgia and otorrrhea. He has difficulty with aural blockage on airplanes. PAST MEDICAL HISTORY No past medical history on file. PAST SURGICAL HISTORY No past surgical history on file. SYMPTOM REVIEW: Symptom review is unremarkable except as indicated in the above history of present illness. OBJECTIVE: PHYSICAL EXAM: GENERAL: The patient is seated in the examination chair appearing well with normal skin turgor and color, and body habitus. There are no obvious deformities and grooming is adequate. Joe Simmons has an adequate ability to communicate. EARS: RIGHT: Canal clear, TM intact mobile free of infection or effusion. LEFT: Canal clear, TM intact , mobile free of infection or effusion. NOSE: Septum: Aligned Turbinates: Normal Mucosa: Normal MOUTH:Examination of the oral mucosa, hard and soft palates, and tongue demonstrates no mucosal abnormality, masses or other lesions. ORAL PHARYNX: Without mucosal abnormality, swelling, erythema or masses. Tonsils: WNL TEETH: open bite deformity. LIPS, GUMS: Without abnormality LARYNX: Normal crepitus,non-displaced. VOCAL CORDS: Mirror exam could not be completed successfully due to prominent gag reflex. VOICE: Normal NECK: Overall appearance is symmetrical. Supple, without lymphadenopathy THYROID:Without enlargement, tenderness or masses. EYES: PERRLA, EOM, Without nystagmus FLEXIBLE LARYNGOSCOPY PRE-OPERATIVE DIAGNOSIS: Gastroesophageal reflux POST-OPERATIVE DIAGNOSIS: Gastroesophageal reflux INDICATIONS: Evaluation of the larynx and immediate subglottis - unable to be visualized by mirror examination ANESTHESIA: 4% Xylocaine PROCEDURE: With the patient sitting upright in the examining chair and the risks, benefits, personnel and alternatives were discussed and the patient agrees to proceed. After the topical application of anesthesia, and after waiting an appropriate period of time for anesthesia/vasoconstriction to become effective, the flexible laryngoscope was passed through the anterior nares. The nose, nasopharynx, oropharynx, hypopharynx and larynx were examined. FINDINGS: Findings is the nose, nasopharynx, oropharynx, hypopharynx, pyriform recesses, and endolarynx are normal with the exception of: There was erythema of the posterior glottis, with some mucosal changes, consistent with Acid Reflux. CONDITION: Stable; Well tolerated. COMPLICATIONS OR DIFFICULTIES: None Abiel Downey MD, PhD AUDIOMETRICS: NORMAL Tympanometry Encounter Diagnosis ICD-10-CM 1. Dysfunction of right eustachian tube H69.91 2. PND (post-nasal drip) R09.82 FLEX FIBEROP LARYNGOSCOPY,DIAG 3. Gastroesophageal reflux disease, unspecified whether esophagitis present K21.[address] (PROTONIX) 40 mg tablet Follow up: Abiel Downey MD, PhD [facility] Evaluation note Note Date & Type Note Facility [facility]: Evaluation note Note Date & Type Note Facility Evaluation note Diagnosis Onset Date Resolution Fatigue acute January 18, 2025 4:27pm [facility] Work Phone: Reason for referral (narrative) Note Date & Type Note Facility Reason for referral (narrative) No reason for referral information available [facility] Work Phone: Family History No Family History Records Found Relationship Condition Age at Onset Recorded Date/T brittany father Cardiac disease Unknown Diabetes mellitus Unknown mother Diabetes mellitus Unknown Advance Directives No Advanced Directives Records Found Advance Directive Response Recorded Date/ Time Living Will Yes August 14 10:20am Power of Academic Interventionist Yes August 14, 2021 10:20am Summary Purpose Chief Complaint and Reason for Visit Chief Complaint Admit Date DISCUSS TESTOSTERONE January 18, 2025 4:27 pm EORDERS January 21, 2025 8:32a m Reason for Visit Admit Date Fatigue January 18, 2025 4:27p m Chief Complaint Admit Date DISCUSS TESTOSTERONE January 18, 2025 4:27 pm Additional Source Comments Care Teams (unrecognized sec tion and content) Team Status: Active Member Role Status Dates Dr. Isiah Glaser , DO Family Provider Active Dr. Isiah Glaser DO Primary Care Provider Active Team Status: Inactive Member Role Status Dates Dr. Isiah Glaser , DO Primary Care Provider Active Dr. Deo Dukes MD Attending Provider Active Team Status: Active Member Role/Relationship Status Dates Dr. Isiah Glaser DO Family Provider Active Dr. Isiah Glaser DO Primary Care Provider Active Team Status: Inactive Member Role/Relationship Status Dates Dr. Isiah Glaser DO Primary Care Provider Active Start: January 18, 2025 End: January 18, 2025 Dr. Isiah Glaser DO Attending Provider Active Start: January 18, 2025 End: January 18, 2025 Dr. Isiah Glaser DO Referring Provider Active Start: January 18, 2025 End: January 18, 2025 Team Status: Inactive Member Role/Relationship Status Dates Dr. Isiah Glaser DO Primary Care Provider Active Start: January 21, 2025 End: January 21, 2025 Dr. Isiah Glaser DO Attending Provider Active Start: January 21, 2025 End: January 21, 2025 Dr. Isiah Glaser DO Referring Provider Active Start: January 21, 2025 End: January 21, 2025 Goals (unrecognized section and content) Goals may be documented in a n alternate sectionGoals may be documented in an alternate sectionGoals may be documented in an alternate section (unrecognized sect ion and content) No Status Records FoundNo Status Records Found INFORMATION SOURCE (unrecogn ized section and content) DATE CREATED AUTHOR 07/25/2023 [facility] DATE CREATED AUTHOR AUTHOR'S ORGANIZ ATION 01/26/2025 [facility] FOR RECORDS PERTAINING TO PATIENTS WHO ARE OR HAVE BEEN ENROLLED IN A CHEMICAL DEPENDENCY/SUBSTANCEABUSE PROGRAM, SOME INFORMATION MAY BE OMITTED. This clinical summary was aggregated from multiple sources. Caution should be exercised in using it in the provision of clinical care. This summary normalizes information from multiple sources, and as a consequence, information in this document may materially change the coding, format and clinical context of patient data. In addition, data may be omitted in some cases. CLINICAL DECISIONS SHOULD BE BASED ON THE PRIMARY CLINICAL RECORDS. [employer] provides no warranty or guarantee of the accuracy or completeness of information in this document.
== END | disposition home or self-care (01) ==
LOC: LAB 08:07
PROVIDERS: PCP Family Medicine; Referring Provider Family Medicine; Visit Provider Family Medicine
DX: R53.83 Other fatigue (principal)
CPT/HCPCS: 36415; 84403